=== PATIENT | male | born 1985 | race Hispanic/Latino ===

== ENCOUNTER 2023-06-24 06:11 | Inpatient (IN) | payer OTHER ==
[~2023-06-24] VITALS: Ht 170.2 cm; Wt 96.9 kg
[2023-06-24] MEDS ORDERED: LIDOCAINE HCL 2% VISCOUS 15 ML UDCUP PO ONE (08:30)
[2023-06-24] MEDS ORDERED: PANT20TA18 PO (08:39)
[2023-06-24 09:16] LABS: BASOPHILS # (AUTO) 0.06 K/uL (0.00-0.20); BASOPHILS % (AUTO) 0.5 % (0.0-5.0); EOSINOPHILS # (AUTO) 0.45 K/uL (0.00-0.70); EOSINOPHILS % (AUTO) 3.8 % (0.0-8.0); IMMATURE GRANULOCYTE ABSOLUTE 0.04 K/uL (0-1); LYMPHOCYTES # (AUTO) 1.8 K/uL (1.0-4.8); LYMPHOCYTES % (AUTO) 15.4 % (21.0-51.0); MEAN CORPUSCULAR HEMOGLOBIN 29.9 pg (27.0-33.0); MEAN CORPUSCULAR VOLUME 88.1 fL (79-99); MONOCYTES # (AUTO) 0.6 K/uL (0.1-1.0); MONOCYTES % (AUTO) 5.4 % (3.0-13.0); NEUTROPHILS # (AUTO) 8.9 K/uL (1.8-7.7); NEUTROPHILS % (AUTO) 74.6 % (40.0-77.0); PLATELET COUNT (AUTO) 236 K/uL (130-400); RED BLOOD CELL COUNT(AUTO) 5.11 MIL/uL (4.50-6.20); RED CELL DISTRIBUTION WIDTH 13.3 % (11.0-15.5); WHITE BLOOD COUNT (AUTO) 11.9 K/uL (4.8-10.8)
[2023-06-24 09:24] LABS: CREATININE 0.8 mg/dL (0.5-1.5); POTASSIUM 4.4 mmol/L (3.5-5.1)
[2023-06-24 09:29] LABS: ALBUMIN 3.6 g/dL (3.5-5.0); BILIRUBIN,TOTAL 0.3 mg/dL (0.2-1.0); TOTAL PROTEIN, SERUM 7.4 g/dL (6.0-8.3)
[2023-06-24] MEDS ORDERED: LACTATED RINGERS 1000ML 1,000 ML IV ONE (11:00)
[2023-06-24] MEDS ORDERED: MORPHINE 2 MG SYG IVP ONE (11:00)
[2023-06-24] MEDS ORDERED: ONDANSETRON 4MG INJ IVP ONE (11:00)
[2023-06-24] MEDS ORDERED: ZOSYN 3.375GM +NS 50ML IVPB ONE (12:00)
[2023-06-24] MEDS ORDERED: MORPHINE 2 MG SYG IVP PRN (12:30)
[2023-06-24] MEDS ORDERED: ONDANSETRON 4MG INJ IVP PRN (12:30)
[2023-06-24] MEDS ORDERED: 0.9%NACL 1000ML 1,000 ML IV ONE (12:30)
[2023-06-24 13:00] LABS: INR 0.93 (0.85-1.15); PROTHROMBIN TIME 10.3 SEC (9.6-11.6)
[2023-06-24 13:01] LABS: PARTIAL THROMBOPLASTIN TIME 29.1 SEC (26.3-35.5)
[2023-06-24 13:18] LABS: HEMOGLOBIN A1C 5.5 % (4.0-6.0)
[2023-06-24] MEDS ORDERED: 0.9%NACL 50ML IV SCH (20:00)
[2023-06-24] MEDS: ZOSYN 3.375GM +NS 50ML IVPB SCH (20:42)
[2023-06-24 22:13] VITALS: BP 138/93; PULSE 66; RESP 20
[2023-06-24 23:00] VITALS: O2SAT 100
[2023-06-25] VITALS (27 sets, daily range): BP systolic 105–163; BP diastolic 58–110; PULSE 54–107; RESP 15–20; O2SAT 100
[2023-06-25] MEDS: ZOSYN 3.375GM +NS 50ML IVPB SCH ×2 (04:10→11:03)
[2023-06-25 05:15] LABS: BASOPHILS # (AUTO) 0.05 K/uL (0.00-0.20); BASOPHILS % (AUTO) 0.6 % (0.0-5.0); HEMATOCRIT 44.5 % (42-54); IMMATURE GRANULOCYTE ABSOLUTE 0.04 K/uL (0-1); LYMPHOCYTES # (AUTO) 1.7 K/uL (1.0-4.8); MEAN CORPUSCULAR HEMOGLOBIN 29.1 pg (27.0-33.0); MEAN CORPUSCULAR HGB CONC 33.7 g/dL (32.0-36.0); MEAN CORPUSCULAR VOLUME 86.2 fL (79-99); MONOCYTES # (AUTO) 0.6 K/uL (0.1-1.0); MONOCYTES % (AUTO) 7.2 % (3.0-13.0); NEUTROPHILS # (AUTO) 5.5 K/uL (1.8-7.7); NEUTROPHILS % (AUTO) 65.7 % (40.0-77.0); PLATELET COUNT (AUTO) 250 K/uL (130-400); RED BLOOD CELL COUNT(AUTO) 5.16 MIL/uL (4.50-6.20); RED CELL DISTRIBUTION WIDTH 13.5 % (11.0-15.5); WHITE BLOOD COUNT (AUTO) 8.4 K/uL (4.8-10.8)
[2023-06-25 05:51] LABS: ALBUMIN 3.3 g/dL (3.5-5.0); BILIRUBIN,TOTAL 0.8 mg/dL (0.2-1.0); CREATININE 0.8 mg/dL (0.5-1.5); POTASSIUM 3.8 mmol/L (3.5-5.1); TOTAL PROTEIN, SERUM 6.8 g/dL (6.0-8.3)
[2023-06-25 08:36] LABS: SARS-CoV-2, RNA, NAAT NEGATIVE SARS CoV-2 (NEGATIVE)
[2023-06-25] MEDS ORDERED: FAMOTIDINE 20MG VIAL IV SCH (09:00)
[2023-06-25] MEDS ORDERED: BUPIVACAINE/PF 0.25% 30ML VIAL IJ ONE (10:42)
[2023-06-25] MEDS ORDERED: LACTATED RINGERS 1000ML 1,000 ML IV ONE (10:46)
[2023-06-25] MEDS ORDERED: ROCURONIUM 10MG/1ML SYR 10 MG/ML ML ONE (11:46)
[2023-06-25] MEDS ORDERED: PROPOFOL 10 MG/ML 20ML VIAL IV ONE ×2 (11:46→13:16)
[2023-06-25] MEDS ORDERED: MIDAZOLAM HCL 1 MG/ML 2ML VIAL ONE (11:46)
[2023-06-25] MEDS ORDERED: FENTANYL CITRATE PF 50 MCG/1 ML 2ML VIAL ONE ×2 (11:46→12:15)
[2023-06-25] MEDS ORDERED: GLYCOPYRROLATE 1 MG/5 ML SYRINGE ONE (11:46)
[2023-06-25] MEDS ORDERED: LIDOCAINE PF 100MG/5ML (2%) SYRINGE 5ML ONE (11:46)
[2023-06-25] MEDS ORDERED: ACETAMINOPHEN WITH CODEINE 1 TAB TAB PO PRN (12:00)
[2023-06-25] MEDS ORDERED: SIMETHICONE 80 MG TAB.CHEW PO PRN (12:00)
[2023-06-25] MEDS ORDERED: ONDANSETRON 4MG INJ ONE (12:15)
[2023-06-25] MEDS ORDERED: MEPERIDINE-PF 25 MG/ML SYG ONE (13:13)
[2023-06-25] MEDS ORDERED: NEOSTIGMINE 5MG/5ML SYR IV ONE (13:20)
[2023-06-25] MEDS ORDERED: DiphenhydrAMINE HCL 50 MG/ML VIAL ONE (13:27)
[2023-06-25] MEDS ORDERED: ESMOLOL HCL 10 MG/ML 10 ML VIAL ONE (13:27)
[2023-06-25] MEDS ORDERED: HYDROMORPHONE 1 MG INJ ONE (14:06)
[2023-06-25] MEDS ORDERED: LABETALOL 20MG SYG IV ONE (14:20)
[2023-06-25] MEDS ORDERED: ACET-2079 PO (15:40)
[2023-06-25] MEDS ORDERED: LISI10TA24 PO (15:47)
== END 2023-06-25 18:30 | disposition home or self-care (01) | DRG 419 ==
LOC: EDH 06:11 → EDHIP 06:12 → 4CH 21:57
PROVIDERS: ADMIT Internal Medicine; ATTEND Internal Medicine
PROC: 0FT44ZZ Resection of Gallbladder, Percutaneous Endoscopic Approach (ICD-10-PCS; principal; 2023-06-25 11:47)
DX: K80.00 Calculus of gallbladder with acute cholecystitis without obstruction (principal); I10 Essential (primary) hypertension; Z20.822 Contact with and (suspected) exposure to COVID-19; E66.09 Other obesity due to excess calories; Z68.33 Body mass index [BMI] 33.0-33.9, adult
CPT/HCPCS: 36415; 71045; 76705; 78226; 80053; 83036; 83690; 84443; 84484; 85025; 85610; 85730; 87635; 93005; 93306; 93356; A9537; G0378; J1170; J1200; J2001; J2175; J2250; J2270; J2405; J2543; J2704; J2710; J3010; J3490; J7030; J7120; A4216; A4222; A4223; A4600

== ENCOUNTER → 2023-07-02 | Emergency (ER) | payer OTHER ==
[~2023-07-02] VITALS: Ht 167.6 cm; Wt 99.8 kg
[~2023-07-02] MED LIST: ACET-2079 PO; LISI10TA24 PO
[2023-07-02 07:37] VITALS: BP 137/88; PULSE 76; RESP 16
== END ==
LOC: EDH 07:35
DX: R68.89 Other general symptoms and signs (principal); Z53.21 Procedure and treatment not carried out due to patient leaving prior to being seen by health care provider
CPT/HCPCS: 99281

== ENCOUNTER 2023-08-25 13:30 | Emergency (ER) | payer OTHER ==
[2023-08-26] MEDS ORDERED: PANT20TA18 PO (10:41)
[2023-08-26] MEDS ORDERED: ONDA4TAB10 PO (10:41)
== END 2023-08-25 14:18 | disposition left against medical advice (07) ==
LOC: EDH 13:30
DX: R11.0 Nausea (principal); E86.0 Dehydration; Z53.21 Procedure and treatment not carried out due to patient leaving prior to being seen by health care provider

== ENCOUNTER 2023-08-26 07:50 | Emergency (ER) | payer OTHER ==
[~2023-08-26] VITALS: Ht 170.2 cm; Wt 81.6 kg
[2023-08-26 08:35] LABS: HEMATOCRIT 50.1 % (42-54); MEAN CORPUSCULAR HEMOGLOBIN 29.5 pg (27.0-33.0); MEAN CORPUSCULAR HGB CONC 33.9 g/dL (32.0-36.0); RED BLOOD CELL COUNT(AUTO) 5.76 MIL/uL (4.50-6.20); RED CELL DISTRIBUTION WIDTH 14.2 % (11.0-15.5); WHITE BLOOD COUNT (AUTO) 9.3 K/uL (4.8-10.8)
[2023-08-26 08:45] LABS: CREATININE 1.3 mg/dL (0.5-1.5); POTASSIUM 3.8 mmol/L (3.5-5.1)
[2023-08-26 08:46] LABS: AMYLASE 43 U/L (25-115)
[2023-08-26 08:49] LABS: ALBUMIN 4.6 g/dL (3.5-5.0)
[2023-08-26 08:53] LABS: AMPHET/METH SCREEN,URINE NEGATIVE (NEGATIVE); BARBITURATE SCREEN, URINE NEGATIVE (NEGATIVE); BENZODIAZEPINES SCREEN,URINE NEGATIVE (NEGATIVE); CANNABINOID SCREEN,URINE POSITIVE (NEGATIVE); COCAINE SCREEN,URINE NEGATIVE (NEGATIVE); OPIATE SCREEN,URINE NEGATIVE (NEGATIVE); PHENCYCLIDINE SCREEN,URINE NEGATIVE (NEGATIVE)
[2023-08-26 09:27] LABS: APPEARANCE,URINE CLOUDY (CLEAR); BILIRUBIN,URINE NEGATIVE (NEGATIVE); COLOR,URINE YELLOW (YELLOW); GLUCOSE, URINE (UA) NEGATIVE (NEGATIVE); KETONES,URINE NEGATIVE (NEGATIVE); LEUKOCYTE ESTERASE ,URINE NEGATIVE Leu/uL (NEGATIVE); NITRATE,URINE NEGATIVE (NEGATIVE); OCCULT BLOOD,URINE NEGATIVE (NEGATIVE); PH,URINE 5.5 (5.0-8.0); PROTEIN,URINE 30 mg/dL (NEGATIVE); UROBILINOGEN,URINE 0.2 mg/dL (0.2-1.0)
[2023-08-26 09:34] LABS: ADD UA MICROSCOPIC YES
[2023-08-26 09:37] LABS: BACTERIA,URINE RARE /HPF (None Seen); HYALINE CASTS, URINE 26-50 /LPF (0-1 /LPF); MUCUS,URINE FEW LPF (None Seen); RBC,URINE 0-1 /HPF (0-1); SQUAMOUS EPITHELIAL CELL,UR RARE /HPF (0-2)
[2023-08-26] MEDS ORDERED: PANT20TA18 PO (10:41)
[2023-08-26] MEDS ORDERED: ONDA4TAB10 PO (10:41)
[2023-08-26 10:47] VITALS: BP 147/89; PULSE 87; RESP 16; O2SAT 98
== END 2023-08-26 10:47 | disposition home or self-care (01) ==
LOC: EDH 07:50
DX: R10.13 Epigastric pain (principal); F12.10 Cannabis abuse, uncomplicated; R11.2 Nausea with vomiting, unspecified; Z79.899 Other long term (current) drug therapy; Z90.49 Acquired absence of other specified parts of digestive tract
CPT/HCPCS: 36415; 80053; 80305; 81001; 82150; 83690; 85027; 87088

== ENCOUNTER 2023-08-28 12:48 | Emergency (ER) | payer OTHER ==
[~2023-08-28] VITALS: Ht 170.2 cm; Wt 81.6 kg
[~2023-08-28 12:48] MED LIST changes: +ONDA4TAB10 PO; +PANT20TA18 PO
[2023-08-28 12:49] VITALS: BP 164/74; PULSE 77; RESP 16
[2023-08-28] MEDS ORDERED: LIDOCAINE HCL 2% VISCOUS 15 ML UDCUP PO ONE (13:30)
[2023-08-28] MEDS ORDERED: CHLO473M2 MM (13:30)
[2023-08-28] MEDS ORDERED: IBUP-2077 PO (13:31)
[2023-08-28] MEDS ORDERED: KETOROLAC 15MG/ML VIAL (15MG/ML) IM ONE (14:00)
== END 2023-08-28 14:03 | disposition home or self-care (01) ==
LOC: EDH 12:48
DX: K02.9 Dental caries, unspecified (principal); Z79.899 Other long term (current) drug therapy; Z98.890 Other specified postprocedural states
CPT/HCPCS: 99282; J1885